=== PATIENT | male | born 1975 | race Hispanic/Latino ===

== ENCOUNTER 2018-10-18 00:37 | Emergency (ER) | payer OTHER ==
[~2018-10-18] VITALS: Ht 160 cm; Wt 81.7 kg
[2018-10-18] MEDS ORDERED: KEFLEX500 MG PO (01:12)
== END 2018-10-18 01:27 | disposition home or self-care (01) ==
LOC: ED 00:37
DX: S31.31XA Laceration without foreign body of scrotum and testes, initial encounter (principal); F17.200 Nicotine dependence, unspecified, uncomplicated; Y04.2XXA Assault by strike against or bumped into by another person, initial encounter
CPT/HCPCS: 12002; 90471; 90715; 99283-25

== ENCOUNTER 2019-03-05 05:30 | Day surgery (SDC) | payer MEDICARE, MEDICAID ==
[~2019-03-05] VITALS: Ht 160 cm; Wt 93.4 kg
[~2019-03-05 05:30] MED LIST: CYCLOBENZAPRINE10 MG PO; KEFLEX500 MG PO
--- NOTE | 2019-03-05 08:17 | NUR ---
03/05/19 0817 Stormy Puentes 0758 PATIENT ARRIVES TO PACU UNRESPONSIVE TO PAIN. RESP EVEN AND UNLABORED, MASK AT 6 LITERS 0810 PATIENT WAKES UP WITH VERBAL STIMULI. STAYS AWAKE. RESP EVEN AND UNLABORED, OXYGEN OFF, ROOM AIR SATS >97%. 0815 PATIENT AWAKE. SITTING UP DRINKING WATER.
--- NOTE | 2019-03-05 08:29 | NUR ---
PT ALERT, ORIENTED, SLIGHTLY PAMUNKEY AND SUPPORTED BY HIS MISSY. THIS WIIL BE PTS' FIRST SCOPE AND GAVE THEM OUTLINE OF WHAT THEY COULD EXPECT. PT REQUESTED PRAYER, WILL FOLLOW NEEDED
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
== END 2019-03-05 08:30 | disposition home or self-care (01) ==
LOC: DS 05:30 → OPS 05:30 → DS 06:45 → OPS 08:30
PROVIDERS: Colon & Rectal Surgery
PROC: 0DJD8ZZ Inspection of Lower Intestinal Tract, Via Natural or Artificial Opening Endoscopic (ICD-10-PCS; principal; 2019-03-05 06:45)
DX: Z12.11 Encounter for screening for malignant neoplasm of colon (principal); K64.8 Other hemorrhoids; M54.9 Dorsalgia, unspecified; G89.29 Other chronic pain; F17.210 Nicotine dependence, cigarettes, uncomplicated; Z79.1 Long term (current) use of non-steroidal anti-inflammatories (NSAID); Z80.0 Family history of malignant neoplasm of digestive organs; Z79.899 Other long term (current) drug therapy
CPT/HCPCS: J0690; J2250; J2704; J3010; J7121

== ENCOUNTER 2020-01-11 10:25 | Emergency (ER) | payer MEDICARE, MEDICAID ==
[~2020-01-11] VITALS: Ht 160 cm; Wt 93.4 kg
[2020-01-11] MEDS ORDERED: PREDNISONE20 MG PO (10:46)
== END 2020-01-11 11:00 | disposition home or self-care (01) ==
LOC: ED 10:25
DX: G51.0 Bell's palsy (principal); F17.200 Nicotine dependence, unspecified, uncomplicated
CPT/HCPCS: 99283; J7512

== ENCOUNTER 2020-03-03 15:31 | Emergency (ER) | payer MEDICARE, MEDICAID ==
[~2020-03-03] VITALS: Ht 160 cm; Wt 90.7 kg
[~2020-03-03 15:31] MED LIST changes: +PREDNISONE20 MG PO
[2020-03-03] MEDS ORDERED: CYCLOBENZAPRINE10 MG PO (15:44)
--- NOTE | 2020-03-03 19:03 | EKG ---
[facility] [address] [facility] [place], [place] [address] Signed Normal sinus rhythm Incomplete right bundle branch block Nonspecific ST abnormality Abnormal ECG No previous ECGs available Confirmed by LOLA MAGANA DO ([id number]) on 03/03/2020 7:03:21 PM Electronically Signed By: LOLA MAGANA DO 03/03/20 1903 PATIENT NAME: RICKY MUNOZ WAYNE Electrocardiogram DATE OF : 73 PHYSICIAN: LOLA MAGANA DO REPORT #: [id number] REPORT IS CONFIDENTIAL AND NOT TO BE RELEASED WITHOUT AUTHORIZATION
== END 2020-03-03 17:48 | disposition home or self-care (01) ==
LOC: ED 15:31
DX: F41.9 Anxiety disorder, unspecified (principal); F17.200 Nicotine dependence, unspecified, uncomplicated; Z79.899 Other long term (current) drug therapy
CPT/HCPCS: 93005; 93010; 99283-25